=== PATIENT | female | born 1960 | race Caucasian/White ===

== ENCOUNTER 2019-01-04 07:25 | Day surgery (SDC) | payer OTHER ==
[2019-01-04] MEDS: CEFAZOLIN 1 GM/50 ML (PMX) 50 ML IVPB ×2 (08:30→10:40)
[2019-01-04] MEDS: SOD CHLORIDE 0.9% 1,000 ML IV (10:00)
[2019-01-04] MEDS: FENTAnyl 50 MCG/ML VIAL (10:29)
[2019-01-04] MEDS: LIDOCAINE 1%/EPI (1:100,000) (MDV) 20 ML (10:30)
[2019-01-04] MEDS: MIDAZOLAM 1 MG/ML 2 ML INJ (10:32)
[2019-01-04] MEDS: POLYMYXIN/BACITRACIN 1L IRRIG IRR (11:00)
[2019-01-04] MEDS: HEPARIN 1000 UNITS/ML 10 ML INJ (11:05)
== END 2019-01-04 14:00 | disposition home or self-care (01) ==
LOC: SDS 07:25
DX: C50.911 Malignant neoplasm of unspecified site of right female breast (principal)
CPT/HCPCS: 36561; 76942

== ENCOUNTER 2019-02-21 07:40 | Day surgery (SDC) | payer OTHER ==
[2019-02-21] MEDS ORDERED: CEFAZOLIN 1 GM/50 ML (PMX) 50 ML IVPB (08:30)
[2019-02-21] MEDS: LIDOCAINE 1%/EPI (1:100,000) (MDV) 20 ML (09:59)
[2019-02-21] MEDS ORDERED: DIPHENHYDRAMINE 50 MG INJ (10:01)
[2019-02-21] MEDS: SOD CHLORIDE 0.9% 1,000 ML IV (10:15)
[2019-02-21] MEDS: FENTAnyl 50 MCG/ML VIAL (10:53)
[2019-02-21] MEDS: SOD CHLORIDE 0.9% 500 ML (11:00)
[2019-02-21] MEDS: POLYMYXIN/BACITRACIN 1L IRRIG IRR (11:00)
[2019-02-21] MEDS: HEPARIN 1000 UNITS/ML 10 ML INJ (11:10)
== END 2019-02-21 13:20 | disposition home or self-care (01) ==
LOC: SDS 07:40
DX: Z45.2 Encounter for adjustment and management of vascular access device (principal); Z85.3 Personal history of malignant neoplasm of breast
CPT/HCPCS: 36590; 88300